=== PATIENT | female | born 1950 | race Caucasian/White ===

== ENCOUNTER 2018-02-23 10:08 | Emergency (ER) | END 2018-02-23 13:23 | disposition home or self-care (01) ==

== ENCOUNTER 2018-03-15 18:52 | Emergency (ER) | END 2018-03-15 22:45 | disposition home or self-care (01) ==

== ENCOUNTER 2018-11-04 11:37 | Emergency (ER) | payer BC ==
[~2018-11-04] VITALS: Ht 167.6 cm; Wt 72.2 kg
[~2018-11-04 11:37] MED LIST: ACET325T33 PO; AMI25 PO; ATOR20TA38 PO; DOCU-144 PO; FAMO20TA18 PO; HYDR-3980 PO; LEVO112T57 PO; LIDO700A29 TP; LOSA1TAB25 PO; NITR-58 PO; NITR0.4T32 SL; PROP10TA6 PO; RANI150T35 PO
[2018-11-04 11:52] VITALS: Ht 167.6 cm; Wt 72.2 kg
[2018-11-04] MEDS ORDERED: IBUPROFEN 800 MG TAB PO ONE (12:30)
[2018-11-04] MEDS ORDERED: LOSA100T15 PO (12:36)
[2018-11-04] MEDS ORDERED: LEVO112T42 PO (12:36)
[2018-11-04] MEDS ORDERED: CIPR500T4 PO (12:46)
[2018-11-04] MEDS ORDERED: IBUP-1542 PO (12:49)
[2018-11-04 13:27] VITALS: BP 158/72; PULSE 65; RESP 17
--- NOTE | 2018-11-04 15:23 | ERD ---
ER Documentation Chief Complaint Chief Complaint Complains of flank pain x 3 days HPI Patient is a 68-year-old female with hypertension who presents with flank pain. The patient has bilateral flank pain for "a long time". The patient was supposed to get an endoscopy and colonoscopy but did not because of insurance changes. Her pain was worse today so she came to the ER. The pain feels like a "burning". She denies fevers. She has had no treatment for pain today. Upon review of old medical records this is the patient's third visit to the ER since February 2018. ROS All systems reviewed and are negative except as per history of present illness. Medications Home Meds Active Scripts Ibuprofen* (Motrin*) 600 Mg Tab, 600 MG PO Q6H PRN for PAIN AND OR ELEVATED TEMP, #30 TAB Prov:KORIN KEMP MD 11/04/18 Ciprofloxacin Hcl* (Ciprofloxacin Hcl*) 500 Mg Tablet, 500 MG PO BID for 7 Days, TAB Prov:KORIN KEMP MD 11/04/18 Reported Medications Losartan Potassium* (Losartan Potassium*) 100 Mg Tablet, 100 MG PO DAILY, TAB 11/04/18 Levothyroxine Sodium* (Levoxyl*) 112 Mcg Tablet, 112.5 MCG PO BEFORE BREAKFAST, #30 TAB 11/04/18 Nitroglycerin* (Nitroglycerin* SL) 0.4 Mg Tab.subl, 0.4 MG SL Q5MIN PRN for CHEST PAIN, BOTTLE 02/23/18 Atorvastatin Calcium* (Atorvastatin Calcium*) 20 Mg Tablet, 20 MG PO QHS, #30 TAB 02/23/18 Propranolol Hcl* (Propranolol Hcl*) 10 Mg Tablet, 10 MG PO BID, TAB 02/23/18 Famotidine* (Famotidine*) 20 Mg Tablet, 20 MG PO DAILY, #30 TAB 02/23/18 Discontinued Reported Medications Amitriptyline Hcl* (Elavil*) 25 Mg Tab, 25 MG PO HS, #30 TAB 02/23/18 Losartan-Hydrochlorothiazide (Losartan-HCTZ) 100-25 Mg Tab, 1 TAB PO DAILY, TAB 02/23/18 Levothyroxine Sodium* (Levothyroxine Sodium*) 112 Mcg Tablet, 112 MCG PO BEFORE BREAKFAST, #30 TAB 02/23/18 Discontinued Scripts Acetaminophen* (Tylenol*) 325 Mg Tablet, 2 TAB PO Q6 PRN for PAIN AND OR ELEVATED TEMP, #40 TAB Prov:FABIOLA BURCIAGA MD 03/15/18 Lidocaine (Lidoderm) 1 Each Adh..patch, 1 EACH TP Q12 for PAIN LEVEL 6-10, #10 PATCH Prov:FABIOLA BURCIAGA MD 03/15/18 Ranitidine Hcl* (Zantac*) 150 Mg Tablet, 150 MG PO BID PRN for EPIGASTRIC PAIN, #30 TAB Prov:FABIOLA BURCIAGA MD 03/15/18 Docusate Sodium* (Colace*) 100 Mg Capsule, 100 MG PO TID, #30 CAP Prov:KORIN KEMP MD 02/23/18 Hydrocodone/Acetaminophen ([place] 10-325 Tablet) 1 Each Tablet, 1 TAB PO Q6H PRN for PAIN, #7 TAB Prov:KORIN KEMP MD 02/23/18 Nitrofurantoin Monohyd Macrocr* (Macrobid*) 100 Mg Capsr, 100 MG PO BID for 7 Days, CAP Prov:KORIN KEMP MD 02/23/18 Allergies Allergies: Coded Allergies: No Known Allergy (Unverified , 11/04/18) PMhx/Soc History of Surgery: Yes (THYROIDECTOMY ) Anesthesia Reaction: No Hx Neurological Disorder: No Hx Respiratory Disorders: No Hx Cardiac Disorders: Yes (HTN , HIGH CHOLESTEROL ) Hx Psychiatric Problems: No Hx Miscellaneous Medical Probl: Yes (ARTHRITIS ) Hx Alcohol Use: No Hx Substance Use: No Hx Tobacco Use: No Smoking Status: Never smoker FmHx Family History: No diabetes Physical Exam Vitals Vital Signs Date Temp Pulse Resp B/P (MAP) Pulse Ox O2 O2 Flow FiO2 Time Delivery Rate 11/04/18 97.7 65 17 158/72 97 Room Air 13:27 (100) 11/04/18 97.7 62 20 162/70 96 11:52 (100) Physical Exam Const: No acute distress Head: Atraumatic Eyes: Normal Conjunctiva ENT: Normal External Ears, Nose and Mouth. Neck: Full range of motion. No meningismus. Resp: Clear to auscultation bilaterally Cardio: Regular rate and rhythm, no murmurs Abd: Soft, non tender, non distended. Normal bowel sounds Skin: No petechiae or rashes Back: No midline or flank tenderness Ext: No cyanosis, or edema Neur: Awake and alert Psych: Normal Mood and Affect Results 24 hrs Laboratory Tests Test 11/04/18 12:42 Bedside Urine pH (LAB) 7.0 Bedside Urine Protein (LAB) Negative Bedside Urine Glucose (UA) Negative Bedside Urine Ketones (LAB) Negative Bedside Urine Blood Negative Bedside Urine Nitrite (LAB) Negative Bedside Urine Leukocyte Esterase (L 1+ Current Medications Medications Dose Sig/Ollie Start Time Status Last (Trade) Ordered Route PRN Stop Time Admin Dose Reason Admin Ibuprofen 800 mg ONCE ONCE 11/04/18 DC 11/04/18 (Motrin) PO 12:30 12:38 11/04/18 12:31 Procedures/MDM Urine dip is positive for infection. Patient is a 68-year-old female with hypertension who presents with flank pain. The patient was found to have acute cystitis. I doubt sepsis or pyelonephritis at this time. The patient will be treated with Cipro. I doubt other serious etiology and she has had this pain for a long time. The patient will be discharged but will need to follow-up with her primary doctor within 1 week. She can follow-up with a GI doctor as well to schedule the endoscopy and colonoscopy she was not able to have. She can return for any worsening symptoms. I doubt appendicitis, cholecystitis, pancreatitis, or bowel obstruction. Departure Diagnosis: Primary Impression: Cystitis Additional Impression: Flank pain Condition: Fair Patient Instructions: Cystitis Referrals: EBTINA HERNÁNDEZ (PCP) SIRENA RIBEIRO MD Additional Instructions: Llame al doctor elizabeth rizo (Referral Sources) MAANA y denis arnoldo GARRICK PARA DENTRO DE ARNOLDO SEMANA. Dgale a la secretaria que nosotros le instruimos hacer esta garrick.Avise o llame si corona condicin se empeora antes de la garrick. KORIN KEMP MD Nov 04, 2018 15:23
== END 2018-11-04 13:28 | disposition home or self-care (01) ==
LOC: E/R 11:37
DX: N30.90 Cystitis, unspecified without hematuria (principal); I10 Essential (primary) hypertension
CPT/HCPCS: 81003; Z7502; Z7610; 99283

== ENCOUNTER 2019-03-20 08:56 | Day surgery (SDC) | payer BC ==
[~2019-03-20] VITALS: Ht 152.4 cm; Wt 72.2 kg
[~2019-03-20 08:56] MED LIST changes: -ACET325T33 PO; -AMI25 PO; +CIPR500T4 PO; -DOCU-144 PO; -HYDR-3980 PO; +IBUP-1542 PO; +LEVO112T42 PO; -LEVO112T57 PO; -LIDO700A29 TP; +LOSA100T15 PO; -LOSA1TAB25 PO; -NITR-58 PO; -RANI150T35 PO
[2019-03-20 10:02] VITALS: Ht 152.4 cm; Wt 72.2 kg
[2019-03-20] MEDS ORDERED: FENTAnyl 50 MCG/ML VIAL ONE ×2 (10:23)
[2019-03-20] MEDS ORDERED: MIDAZOLAM 1 MG/ML 2 ML INJ ONE (10:23)
[2019-03-20] MEDS ORDERED: METOPROLOL 5 MG INJ ONE (10:24)
[2019-03-20 10:26] VITALS: BP 107/68; PULSE 73; RESP 18
--- NOTE | 2019-03-20 10:46 | PREAC ---
Date/Time of Note Date/Time of Note DATE: 03/20/19 TIME: 10:45 Anesthesia Eval and Record Evaluation Time Pre-Procedure Interview DATE: 03/20/19 TIME: 10:45 Age 68 Sex female NPO: 8 hrs Preoperative diagnosis screening Planned procedure colonoscopy Past Medical History Past Medical History: Includes Cardio: HTN, Dyslipidemia, CAD Endo: Hypothyroid GI: GERD, Obesity Surgery & Anesthesia Issues No known issue Meds Anticoagulation: No Beta Cinthia within 24 hr: Yes Reported Medications Losartan Potassium* (Losartan Potassium*) 100 Mg Tablet, 100 MG PO DAILY, TAB 11/04/18 Levothyroxine Sodium* (Levoxyl*) 112 Mcg Tablet, 112.5 MCG PO BEFORE BREAKFAST, #30 TAB 11/04/18 Nitroglycerin* (Nitroglycerin* SL) 0.4 Mg Tab.subl, 0.4 MG SL Q5MIN PRN for CHEST PAIN, BOTTLE 02/23/18 Atorvastatin Calcium* (Atorvastatin Calcium*) 20 Mg Tablet, 20 MG PO QHS, #30 TAB 02/23/18 Propranolol Hcl* (Propranolol Hcl*) 10 Mg Tablet, 10 MG PO BID, TAB 02/23/18 Famotidine* (Famotidine*) 20 Mg Tablet, 20 MG PO DAILY, #30 TAB 02/23/18 Discontinued Scripts Ibuprofen* (Motrin*) 600 Mg Tab, 600 MG PO Q6H PRN for PAIN AND OR ELEVATED TEMP, #30 TAB Prov:KORIN KEMP MD 11/04/18 Ciprofloxacin Hcl* (Ciprofloxacin Hcl*) 500 Mg Tablet, 500 MG PO BID for 7 Days, TAB Prov:KORIN KEMP MD 11/04/18 Meds reviewed: Yes Allergies Coded Allergies: No Known Allergy (Unverified , 11/04/18) Allergies Reviewed: Yes Labs/Studies Labs Reviewed: Reviewed by anesthesiologist test: N/A Pre-procedure Exam Last vitals Vital Signs Date Temp Pulse Resp B/P (MAP) Pulse Ox O2 O2 Flow FiO2 Time Delivery Rate 03/20/19 97.7 73 18 107/68 100 Room Air 10:26 (81) Airway: Adequate mouth opening, Adequate thyromental dist Mallampati: Mallampati III Teeth: Normal Lung: Normal Heart: Normal ASA Physical Status ASA physical status: 3 Emergency: None Pre-operative Attestations Prior to commencing anesthesia and surgery, the patient was re-evaluated, there was verification of: *The patient's identity *The results of appropriate recent lab work and preoperative vital signs *The above evaluation not changing prior to induction *Anesthetic plan, risk benefits, alternative and complications discussed with patient/family; questions answered; patient/family understands, accepts and wishes to proceed. RENAN KRUGER DO Mar 20, 2019 10:46
--- NOTE | 2019-03-20 10:46 | PAC ---
Date/Time of Note Date/Time of Note DATE: 03/20/19 TIME: 10:46 Post-Anesthesia Notes Post-Anesthesia Note Last documented vital signs Vital Signs Date Temp Pulse Resp B/P (MAP) Pulse Ox O2 O2 Flow FiO2 Time Delivery Rate 03/20/19 98 55 15 155/68 100 mask 1049 Activity: WNL Respiratory function: WNL Cardiovascular function: WNL Mental status: Baseline Pain reasonably controlled: Yes Hydration appropriate: Yes Nausea/Vomiting absent: Yes RENAN KRUGER DO Mar 20, 2019 10:46
== END 2019-03-20 15:11 | disposition home or self-care (01) ==
LOC: GIL 08:56
PROVIDERS: ATTEND Internal Medicine Gastroenterology
DX: Z12.11 Encounter for screening for malignant neoplasm of colon (principal); K64.4 Residual hemorrhoidal skin tags; I10 Essential (primary) hypertension; I25.10 Atherosclerotic heart disease of native coronary artery without angina pectoris; E03.9 Hypothyroidism, unspecified
CPT/HCPCS: 45378; J2250; J3010; Z7610